=== PATIENT | female | born 1995 | race Two or more races ===

== ENCOUNTER 2024-02-07 14:27 | Emergency (ER) | payer MEDICARE ==
[~2024-02-07] VITALS: Ht 121.9 cm; Wt 40.9 kg
[2024-02-07] MEDS ORDERED: OXYC10TA92 PO (14:36)
[2024-02-07] MEDS ORDERED: OXYC5 PO (14:36)
[2024-02-07] MEDS ORDERED: ALBU18HF12 IH (14:38)
[2024-02-07] MEDS ORDERED: ONDA-104 PO (14:38)
[2024-02-07] MEDS ORDERED: DIPH-1243 PO (14:38)
[2024-02-07] MEDS ORDERED: DIAZ-328 PO (14:38)
[2024-02-07] MEDS ORDERED: ALBU2.5V39 NEB (14:38)
[2024-02-07 16:07] LABS: INFLUENZA A-RTPCR,COMBO NEGATIVE (NEGATIVE); INFLUENZA B-RTPCR,COMBO NEGATIVE (NEGATIVE); RESPIRATORY SYNCYTIAL VRS-PCR NEGATIVE (NEGATIVE); SARS COVID19 RTPCR, COMBO NEGATIVE (NEGATIVE)
[2024-02-07] MEDS: LORazepam 1 MG TABLET PO ONE (16:49)
[2024-02-07 16:57] VITALS: PULSE 96; RESP 22; O2SAT 92
[2024-02-07] MEDS: IPRATROPIUM BROMIDE 0.5 MG/2.5 ML NEB SOLUTION NEB ONE (16:57)
[2024-02-07] MEDS: ALBUTEROL SULFATE 2.5 MG/0.5 ML NEB SOLUTION NEB ONE (16:57)
[2024-02-07 17:12] VITALS: PULSE 109; RESP 24; O2SAT 95
[2024-02-07 19:41] LABS: BASOPHILS % (AUTO) 0.4 % (0.0-2.0); EOSINOPHILS % (AUTO) 6.3 % (1.0-6.0); HEMATOCRIT 45.3 % (36-46); HEMOGLOBIN 15.4 g/dL (12.0-16.0); LYMPHOCYTES # (AUTO) 1.7 K/uL (1.0-4.8); LYMPHOCYTES % (AUTO) 17.8 % (22.0-44.0); MEAN CORPUSCULAR HEMOGLOBIN 29.3 pg (26.0-34.0); MEAN CORPUSCULAR VOLUME 86 fL (80-100); MONOCYTES # (AUTO) 0.5 K/uL (0.1-1.0); MONOCYTES % (AUTO) 5.3 % (2.0-9.0); NEUTROPHILS # (AUTO) 6.9 K/uL (1.8-7.7); NEUTROPHILS % (AUTO) 70.2 % (40.0-70.0); PLATELET COUNT (AUTO) 228 K/uL (150-450); RED BLOOD CELL COUNT(AUTO) 5.25 MIL/uL (4.00-5.20); RED CELL DISTRIBUTION WIDTH 13.9 % (11.5-14.5); WHITE BLOOD COUNT (AUTO) 9.8 K/uL (4.5-11.0)
[2024-02-07 19:49] LABS: ANION GAP 11 mmol/L (8-16); CALCIUM, TOTAL 9.2 mg/dL (8.8-10.5); CARBON DIOXIDE 26 mmol/L (22-29); CHLORIDE 98 mmol/L (98-107); CREATININE 0.62 mg/dL (0.60-1.30); GLOMERULAR FILTR. RATE CALC > 60 mL/min (>60); GLUCOSE,RANDOM 98 mg/dL (70-110); POTASSIUM 3.9 mmol/L (3.5-5.1); SODIUM SERUM 135 mmol/L (136-145); UREA NITROGEN, BLOOD 6 mg/dL (7-18)
[2024-02-07 20:01] LABS: ALANINE AMINOTRANSFERASE 10 U/L (12-78); ALKALINE PHOSPHATASE 148 U/L (46-116); ASPARTATE AMINOTRANSFERASE 23 U/L (15-37); BILIRUBIN,TOTAL 0.4 mg/dL (0.1-1.0); HCG,QUANTITATIVE < 1 mIU/mL (0-6); TOTAL PROTEIN, SERUM 9.4 g/dL (6.4-8.2)
[2024-02-07] MEDS ORDERED: *CLINICAL-LEVOFLOXACIN IVPB DOSING CLINICAL ONE (21:45)
[2024-02-07] MEDS ORDERED: 0.9% SODIUM CHLORIDE 10 ML SYRINGE IVP PRN (21:45)
[2024-02-07] MEDS: LEVOFLOXACIN 750 MG/D5% WATER 150 ML IV ONE (21:52)
[2024-02-07] MEDS: SODIUM CHLORIDE 0.9% 1,250 ML IV ONE (21:52)
[2024-02-07 22:09] VITALS: BP 153/102; PULSE 116; RESP 20; TEMP 98.2
[2024-02-07] MEDS ORDERED: LEVO750T68 PO (22:10)
[2024-02-09] MEDS ORDERED: DOCU-119 PO (13:58)
== END 2024-02-07 21:53 | disposition left against medical advice (07) ==
LOC: EMS 14:29
DX: J18.9 Pneumonia, unspecified organism (principal); F41.9 Anxiety disorder, unspecified; Q78.0 Osteogenesis imperfecta; Z98.890 Other specified postprocedural states; Z88.6 Allergy status to analgesic agent; Z88.8 Allergy status to other drugs, medicaments and biological substances; Z20.822 Contact with and (suspected) exposure to COVID-19
CPT/HCPCS: 99284; 0241U; 71250; 71045; 80053; 84702; 85025; 87040; 36415; 94640; J1956; J7613